=== PATIENT | male | born 1985 | race Two or more races ===

== ENCOUNTER 2017-04-21 21:28 | Emergency (ER) | payer SELFPAY ==
[2017-04-21 21:36] VITALS: BP 125/76; PULSE 71; RESP 18; TEMP 98.2; O2SAT 97
--- NOTE | 2017-04-21 21:51 | EDPHY ---
H & P Time Seen by Provider: 04/21/17 21:44 HPI/ROS: CHIEF COMPLAINT: Right shoulder injury HISTORY OF PRESENT ILLNESS: 31-year-old male arrives via private vehicle complaining of acute right shoulder pain. 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 He is complaining of reproducible right shoulder pain with range of motion. Denies elbow or hand pain. Denies wrist pain. PHYSICAL EXAM (Prior to examination, patient consented to physical exam, hands were washed and my usual and customary physical exam procedures followed) 1) GENERAL: Well-developed, well-nourished, alert and oriented. Appears to be in no acute distress. 2) HEAD: Normocephalic 3) HEENT: sclera anicteric 4) LUNGS: Breathing comfortably. 5) SKIN: Intact no visible signs of trauma 6) MUSCULOSKELETAL: right upper extremity: No visible or palpable abnormality beyond localized pain to the anterolateral aspect of the shoulder which is reproducible with range of motion. No crepitus. No step-off. Normal anatomic landmarks. The right elbow, humerus, wrist and hand are nontender. Radial ulnar median nerve function intact. Soft compartments Smoking Status: Never smoked Constitutional: Initial Vital Signs Temperature (C) 36.8 C 04/21/17 21:34 Heart Rate 71 04/21/17 21:34 Respiratory Rate 18 04/21/17 21:34 Blood Pressure 125/76 H 04/21/17 21:34 O2 Sat (%) 97 04/21/17 21:34 O2 Delivery Mode Room Air Allergies/Adverse Reactions: No Known Allergies Allergy (Unverified 04/21/17 21:33) Home Medications: Medication Instructions Recorded NK [No Known Home Meds] 04/14/15 MDM/Departure - MDM Imaging Results: Imaging Impressions Shoulder X-Ray 04/21/17 21:49 Impression: Negative right shoulder radiographs. Images reviewed myself Procedures: Procedure: Splint A sling was applied by ER concrete technician. After application of the splint I returned and re-examined the patient. The splint was adequately immobilizing the joint and distal to the splint the patient's circulation and sensation were intact. Patient shows no signs of compartment syndrome. Was given orthopedic precautions. Medications Given: Discontinued Medications Hydrocodone Bitart/Acetaminophen ([place] 5/325mg Prepack#6) 1 btl [facility] ED[facility] ONE Stop: 04/21/17 22:09 Last Admin: 04/21/17 22:21 Dose: 1 btl ED Course/Re-evaluation: Re-evaluation with serial exams. Discussed his negative imaging. Discussed limitations of shoulder x-ray and recommend orthopedic follow-up. Not think that emergent MRI is currently indicated. He has been placed in a sling and given usual and customary orthopedic precautions instructions. - Depart Disposition: Home, Routine, Self-Care Clinical Impression: Activities involving softball Sprain of right shoulder Qualifiers: Encounter type: initial encounter Shoulder sprain type: unspecified sprain Qualified Code(s): S43.401A - Unspecified sprain of right shoulder joint, initial encounter Condition: Good Instructions: Hydrocodone/Acetaminophen (By mouth), Shoulder Sprain (ED) Additional Instructions: Return to the ER immediately if you experience discoloration, have worsening pain, numbness, tingling, or any other symptoms that concern you. If you received x-rays in the emergency department today, be advised, that ligamentous , tendon, muscular, and other non-bony injury cannot be fully ruled out. Try to keep your affected extremity elevated above the level of your chest, and keep cold packs on the affected area, for the next 48 hours. Referrals: Greg Fry MD [Medical Doctor] - 5-7 days, call for appt.
[2017-04-21] MEDS ORDERED: HYDROCOD/APAP 5/325 PREPACK#6 BTL TAKEHOME ONE (22:08)
== END 2017-04-21 22:36 | disposition home or self-care (01) ==
DX: S43.401A Unspecified sprain of right shoulder joint, initial encounter (principal); X58.XXXA Exposure to other specified factors, initial encounter; Y99.8 Other external cause status; Y93.64 Activity, baseball
CPT/HCPCS: A4565

== ENCOUNTER 2018-04-26 09:22 | Emergency (ER) | payer MEDICAID, OTHER ==
[2018-04-26 09:31] VITALS: BP 141/75
--- NOTE | 2018-04-26 10:11 | EDPHY ---
H & P Time Seen by Provider: 04/26/18 09:52 HPI/ROS: CHIEF COMPLAINT: Left hand injury HISTORY OF PRESENT ILLNESS: 32-year-old male presents to the emergency department by private vehicle with injury to his left hand. The patient was at work and was using some scissors which slipped and then he accidentally punctured his left hand. The incident happened just prior to arrival. Complains of isolated pain to the left hand. Denies any other trauma or injury. His last tetanus shot was 2 years ago. ROS: Denies numbness or tingling in his fingers, retained foreign body, pain in his left wrist. Past Medical/Surgical History: Negative Social History: Single Smoking Status: Never smoked Physical Exam: On examination the patient has a 1 cm laceration to the dorsal, lateral aspect of his left hand overlying 2nd MCP joint. He has some mild bony tenderness noted. No evidence of retained foreign body. Slow active bleeding noted. Normal sensation to light touch with normal 2 point discrimination. Full range of motion of his fingers. No tendon injury visualized. The other fingers do not appear injured. Constitutional: Initial Vital Signs Temperature (C) 36.7 C 04/26/18 09:28 Heart Rate 60 04/26/18 09:28 Respiratory Rate 16 04/26/18 09:28 Blood Pressure 141/75 H 04/26/18 09:28 O2 Sat (%) 98 04/26/18 09:28 O2 Delivery Mode Room Air Allergies/Adverse Reactions: No Known Allergies Allergy (Verified 04/26/18 09:28) Home Medications: Medication Instructions Recorded NK [No Known Home Meds] 04/14/15 MDM/Departure - MDM Imaging Results: Imaging Impressions Hand X-Ray 04/26/18 10:08 Impression: Soft tissue swelling, with no acute osseous abnormality, or radiopaque foreign body. Imaging: I viewed and interpreted images myself Procedures: Laceration repair. Verbal consent was obtained from the patient. The 1 cm laceration on the left hand was anesthetized using 1% lidocaine with epinephrine. The wound was irrigated with saline, draped and explored to its base with a gloved finger. There were no deep structures involved. No tendon injury was identified. The wound was repaired with 4 0 Ethilon, 2 sutures. The wound repair was simple. The procedure was performed by myself. ED Course/Re-evaluation: 32-year-old male presents to the emergency department with left hand injury. X- rays reveal no fractures. His laceration was repaired and he was given wound care precautions. - Depart Disposition: Home, Routine, Self-Care Clinical Impression: Laceration of left hand Qualifiers: Encounter type: initial encounter Foreign body presence: without foreign body Qualified Code(s): S61.412A - Laceration without foreign body of left hand, initial encounter Contusion of left hand Qualifiers: Encounter type: initial encounter Qualified Code(s): S60.222A - Contusion of left hand, initial encounter Condition: Good Instructions: Care For Your Stitches (ED), Laceration (ED), Acute Wounds (ED) Additional Instructions: Keep wound dry, clean and protected while working. Ibuprofen 600 mg every 8 hr as needed for pain. Return to the emergency department if you notice any signs or symptoms of infection such as redness, swelling, increased pain, fever, purulent drainage. Referrals: NONE *PRIMARY CARE P,. [Primary Care Provider] - As per Instructions
== END 2018-04-26 11:11 | disposition home or self-care (01) ==
PROC: 0HQGXZZ Repair Left Hand Skin, External Approach (ICD-10-PCS; principal; 2018-04-26)
DX: S61.412A Laceration without foreign body of left hand, initial encounter (principal); S60.222A Contusion of left hand, initial encounter; W27.2XXA Contact with scissors, initial encounter; Y99.0 Civilian activity done for income or pay; Y93.89 Activity, other specified